=== PATIENT | female | born 1960 | race Hispanic/Latino ===

== ENCOUNTER 2016-11-07 06:12 | Inpatient (IN) | payer SELFPAY ==
[2016-11-07] MEDS ORDERED: NACL 0.9% 1000 ML 1,000 ML IV ONE ×2 (06:22→13:22)
[2016-11-07 07:41] LABS: INR 0.94 (0.87-1.13); Partial Thromboplastin Time < 20.0 Sec. (24.2-36.6)
[2016-11-07 07:50] LABS: Alanine Aminotransferase 68 units/L (7-56); Albumin 4.3 g/dL (3.9-5); Albumin/Globulin Ratio 1.5 %; Alkaline Phosphatase 104 units/L (35-129); Anion Gap 22 mmol/L; Blood Urea Nitrogen 39 mg/dL (7-17); Calcium 9.1 mg/dL (8.4-10.2); Carbon Dioxide 22 mmol/L (22-30); Chloride 101.3 mmol/L (98-107); Glucose 97 mg/dL (65-100); Lipase 25 units/L (13-60); Potassium 4.4 mmol/L (3.6-5.0); Sodium 141 mmol/L (137-145); Total Protein 7.1 g/dL (6.3-8.2)
[2016-11-07] MEDS ORDERED: NARCAN 2 MG/2 ML ONE (08:01)
[2016-11-07 08:10] LABS: Basophils % (Auto) 1.2 % (0.0-1.8); Eosinophils % (Auto) 0.6 % (0.0-4.3); Hematocrit 41.6 % (30.3-42.9); Hemoglobin 14.1 gm/dl (10.1-14.3); Mean Corpuscular HGB Conc 34 % (30-34); Mean Corpuscular Hemoglobin 36 pg (28-32); Mean Corpuscular Volume 105 fl (79-97); Platelet Count 217 K/mm3 (140-440); Red Blood Count 3.97 M/mm3 (3.65-5.03); Red Cell Distribution Width 13.3 % (13.2-15.2); White Blood Count 8.7 K/mm3 (4.5-11.0)
[2016-11-07] MEDS ORDERED: MORPHINE IV ONE (10:51)
--- NOTE | 2016-11-07 10:57 | Emergency Department Report ---
ED GI Bleed HPI - General Chief complaint: GI Bleed Stated complaint: VOMITING BLOOD/DIARREAH/BLOOD IN STOOL Time Seen by Provider: 11/07/16 10:43 Source: patient Mode of arrival: Ambulatory Limitations: No Limitations - History of Present Illness Initial comments: Patient is a 56 year White female who presents with epigastric pain that is a 6/ 10 it is an achy type of pain. Nothing makes the pain better or worse. Pt also has been vomiting blood and has had some dark stools. Patient has had 2 episodes of coffee ground emesis. Pt has had a history of a Duodenal ulcer that is s/p repair. Pt has been taking NSAIDS for her Migraines. Pt denies having any other pain. - Related Data Previous Rx's Medication Instructions Recorded Last Taken Type Lisinopril [Zestril TAB] 20 mg PO QDAY #30 tablet 10/09/13 Unknown Rx amLODIPine [Norvasc] 5 mg PO DAILY #30 tab 10/09/13 Unknown Rx Allergies Allergy/AdvReac Type Severity Reaction Status Date / Time metoclopramide HCl Allergy Unknown Verified 10/08/13 11:31 [From [facility]] prochlorperazine edisylate Allergy Unknown Verified 10/08/13 11:31 [From Compazine] prochlorperazine maleate Allergy Unknown Verified 10/08/13 11:31 [From Compazine] ED Review of Systems ROS: Stated complaint: VOMITING BLOOD/DIARREAH/BLOOD IN STOOL Other details as noted in HPI Comment: All other systems reviewed and negative Constitutional: malaise Eyes: denies: eye pain, eye discharge, vision change ENT: denies: ear pain, throat pain Respiratory: denies: cough, shortness of breath, wheezing Cardiovascular: denies: chest pain, palpitations Gastrointestinal: abdominal pain, nausea, vomiting, melena Genitourinary: denies: urgency, dysuria, discharge Musculoskeletal: denies: back pain, joint swelling, arthralgia Skin: denies: rash, lesions Neurological: denies: headache, weakness, paresthesias Psychiatric: denies: anxiety, depression Hematological/Lymphatic: denies: easy bleeding, easy bruising ED Past Medical Hx - Past Medical History Previous Medical History?: Yes Hx Hypertension: Yes Hx Headaches / Migraines: Yes Additional medical history: DUODENAL ULCER - Surgical History Past Surgical History?: Yes Additional Surgical History: x 3, Peptic ulcer surgery - Family History Family history: diabetes - Social History Smoking Status: Never Smoker Substance Use Type: Alcohol - Medications Home Medications: Home Medications Medication Instructions Recorded Confirmed Last Taken Type Lisinopril [Zestril TAB] 20 mg PO QDAY #30 tablet 10/09/13 11/07/16 Unknown Rx amLODIPine [Norvasc] 5 mg PO DAILY #30 tab 10/09/13 11/07/16 Unknown Rx ED Physical Exam - General Limitations: No Limitations General appearance: alert - Head Head exam: Present: atraumatic - Eye Eye exam: Present: normal appearance Pupils: Present: normal accommodation - ENT ENT exam: Present: normal exam - Neck Neck exam: Present: normal inspection - Respiratory Respiratory exam: Present: normal lung sounds bilaterally - Cardiovascular Cardiovascular Exam: Present: tachycardia (HR 120) - GI/Abdominal GI/Abdominal exam: Present: tenderness, normal bowel sounds, other (old surgical scar ). Absent: guarding, rebound - Rectal Rectal exam: Present: normal rectal tone, heme (+) stool, black stool - Extremities Exam Extremities exam: Present: full ROM - Back Exam Back exam: Present: normal inspection - Neurological Exam Neurological exam: Present: alert, oriented X3 - Psychiatric Psychiatric exam: Present: normal affect, normal mood - Skin Skin exam: Present: warm ED Course Vital Signs 11/07/16 11/07/16 11/07/16 06:15 06:40 06:51 Temperature 97.7 F Pulse Rate 120 H 105 H Respiratory 18 15 15 Rate Blood Pressure 163/121 177/124 Blood Pressure [Left] O2 Sat by Pulse 99 99 99 Oximetry 11/07/16 11/07/16 11/07/16 07:10 11:00 13:45 Temperature 98.0 F 99.5 F Pulse Rate 103 H 108 H 90 Respiratory 16 16 Rate Blood Pressure 170/125 Blood Pressure 177/119 175/103 [Left] O2 Sat by Pulse 99 100 Oximetry 11/07/16 11/07/16 13:46 14:00 Temperature Pulse Rate 83 Respiratory 18 16 Rate Blood Pressure Blood Pressure 154/82 [Left] O2 Sat by Pulse 100 100 Oximetry - Reevaluation(s) Reevaluation #1: 11/07/16 11:09 Patient rates pain as an 8 out of 10 rectal exam showed heme positive and melanic stool discussed with patient need for admission patient agrees with plan Reevaluation #2: 11/07/16 11:49 Patient came back from CT she is having hives and HEENT on her bilateral foot or extremities patient able to talk in full sentences nor throat swelling patient is in no acute distress we'll give patient IV Benadryl discussed with patient about plan patient agrees. Reevaluation #3: 11/07/16 13:54 CT scan shows nothing acute and abdomen. Discussed with patient about not taking NSAIDs for her abdominal pain. Talked to GI doctor Dr. Alicia about scoping the patient he will scope the patient Patient's pain is improved discussed with the hospitalist Dr. Pittman for admission. Patient's pain is improved. We'll admit and keep nothing by mouth. Patient agrees with plan. ED Medical Decision Making - Lab Data Result diagrams: 11/07/16 13:26 11/07/16 07:19 - EKG Data 11/07/16 11:11 EKG shows sinus tachycardia normal axis and no ST segment elevations no increase in her bowel QTC is 462 impression is sinus tachycardia previous EKG just shows normal sinus rhythm and possible old anterior infarct - Radiology Data Radiology results: pending - Medical Decision Making CDX: Peptic Ulcer DDX: Lower GI arterial venous malformation, Chronic NSAID use, Esophageal Varacies Patient will need CBC CMP type and screen rectal exam IV fluids EKG cardiac markers pain control CT scan due to patient's potentially life-threatening condition will admit patient. Critical care attestation.: If time is entered above; I have spent that time in minutes in the direct care of this critically ill patient, excluding procedure time. ED Disposition Clinical Impression: GI bleed, Abdominal pain, Tachycardia, Nausea & vomiting Disposition: -09 OP ADMIT IP TO THIS HOSP Is pt being admited?: Yes Does the pt Need Aspirin: No Condition: Stable Referrals: PRIMARY CARE, [Primary Care Provider] - 3-5 Days Forms: Accompanied Note
--- NOTE | 2016-11-07 11:16 | Admit Criteria Form ---
Admission Criteria Documentation: GASTROINTESTINAL BLEEDING Clinical Indications for Inpatient Care (Place 'X' for any and all applicable criteria): Ongoing inpatient care may be indicated for gastrointestinal bleeding with ANY ONE of the following (4)(20)(21)(22)(23)(24): [X ]I. Active bleeding (eg, fresh voluminous blood in emesis or nasogastric aspirate, or per rectum) [ ]II. Hemodynamic instability [ ]III. Anticoagulation therapy or coagulopathy ((eg, advanced liver disease, irreversible anticoagulation) [ ]IV. Ischemic colitis (22) [ ]V. Endoscopy showing arterial bleeding, adherent clot, nonbleeding visible vessel, varices, flat red spots, ulcer size greater than 2 cm, or portal hypertensive gastropathy [ ]. High-risk low platelet count [ ]VII. Anemia requiring inpatient care as indicated by ANY ONE of the following a)[ ] Cognitive impairment b)[ ] Syncope c)[ ] Heart failure d)[ ] Chest pain e)[ ] Dyspnea f)[ ] Other findings suggesting inadequate perfusion (eg, peripheral or myocardial ischemia, end organ dysfunction) [ ]VIII. High-risk low platelet count [ ]IX. Suspected variceal cause of bleeding as indicated by ANY ONE of the following(27)(28): a)[ ] Known varices b)[ ] Hepatomegaly or splenomegaly c)[ ] Ascites d)[ ] Jaundice or scleral icterus e)[ ] History of liver disease (eg, cirrhosis) f)[ ] Physical findings of portal hypertension (eg, caput medusa) g)[ ] Comorbid disorder indicating risk for portal vein thrombosis (eg , abdominal surgery, sepsis, shock, exchange transfusion, prior umbilical vein catheterization) Extended stay may be needed until ALL of the following are present(20)(38)(47): [ ]a) Hemodynamic stability [ ]b) No evidence of active bleeding (eg, stable Hematocrit) [ ]c) Platelet count, prothrombin time, and partial thromboplastin time acceptable for next level of care [ ]d) Surgical or other acute intervention not needed [ ]e) Oral hydration and diet tolerated The original [facility] content created by [employer] has been revised. The portions of the content which have been revised are identified through the use of italic text or in bold, and [facility] has neither reviewed nor approved the modified material. All other unmodified content is copyright [facility]. Please see references footnoted in the original [facility] edition 2016 Admission Criteria Met: Yes
[2016-11-07] MEDS ORDERED: ZOFRAN IV ONE (11:19)
[2016-11-07] MEDS ORDERED: BENADRYL IV ONE (11:48)
[2016-11-07] MEDS ORDERED: PROTONIX IV ONE (12:00)
--- NOTE | 2016-11-07 12:30 | Cat Scan Report ---
CT ABDOMEN AND PELVIS WITH CONTRAST INDICATION: GI bleed, epigastric abdominal pain. COMPARISON: None similar. FINDINGS: Abdomen and pelvis CT performed following intravenous administration of 100 cc of Omnipaque 300. LUNG BASES: Nonspecific distal esophageal wall prominence/thickening, not excluded for gastroesophageal reflux and/or hiatal hernia, amongst others. ABDOMEN: Diffuse fatty hepatic infiltration with slight pericholecystic sparing. Otherwise unremarkable liver, spleen, gallbladder, pancreas, adrenals, nonaneurysmal abdominal aorta with atherosclerotic calcifications, IVC and kidneys. Nonopacified GI tract evaluation limited, though grossly nonobstructive. Mid to distal small bowel somewhat fluid filled. Normal appendix. Tiny fat-containing umbilical hernia. PELVIS: Approximately 5 mm hypodense uterine focus indeterminate, though possibly fatty on axial image 305, series 2. Unremarkable urinary bladder and rectosigmoid. No free fluid or significant adenopathy. Mild, age-appropriate spinal degenerative spurring. CONCLUSION: Fatty liver and few other incidental findings, as above. Thank you for the opportunity to participate in this patient's care.
[2016-11-07] MEDS ORDERED: NORMODYNE IV ONE (13:24)
[2016-11-07 13:42] LABS: Basophils % (Auto) 0.7 % (0.0-1.8); Eosinophils % (Auto) 0.3 % (0.0-4.3); Hematocrit 39.8 % (30.3-42.9); Hemoglobin 13.4 gm/dl (10.1-14.3); Mean Corpuscular HGB Conc 34 % (30-34); Mean Corpuscular Hemoglobin 35 pg (28-32); Mean Corpuscular Volume 105 fl (79-97); Platelet Count 246 K/mm3 (140-440); Red Cell Distribution Width 13.4 % (13.2-15.2); White Blood Count 10.5 K/mm3 (4.5-11.0)
[2016-11-07] MEDS ORDERED: APRESOLINE IV PRN (14:19)
--- NOTE | 2016-11-07 14:29 | History and Physical Report ---
History of Present Illness Date of examination: 11/07/16 Chief complaint: Vomiting of blood and dark stools History of present illness: 56-year-old female with past medical history significant for PUD with perforation, H. pylori, migraines, hypertension presented to the emergency department complaining of 2 episodes of vomiting of blood, multiple dark stools that started yesterday. Yesterday afternoon she started to have epigastric pain , burning in quality, 9 out of 10 in intensity with no radiation, associated with nausea and vomiting, no diaphoresis or palpitation. Patient has migraines and has been taking ibuprofen, patient knew that ibuprofen make her PUD worse. Patient has perforated peptic ulcer diseases 10 years ago and was repaired. Patient was treated for H. pylori. REVIEW OF SYSTEMS: GENERAL: no weight change, no fatigue, no fever HEAD: no head ache EYES: no blurry vision, no acute visual loss EARS: no hearing loss, no discharge, no earache NOSE: no stuffiness, no sneezing, no discharge MOUTH, THROAT AND NECK: no bleeding gums, no sore throat, no swollen neck CARDIAC: no palpitations, no dyspnea on exertion, no orthopnea, no PND, no edema , no chest pain RESPIRATORY: no shortness of breath, no wheeze, no cough, no sputum, no hemoptysis, no asthma GI: no decreased appetite,+ nausea, + vomiting, no dysphagia, + diarrhea, no constipation, + abdominal pain URINARY: no change in frequency, no urgency, no polyuria, no hematuria, no incontinence MUSCULOSKELETAL: no muscle weakness, no pain, no joint stiffness NEUROLOGIC: no loss of sensation/numbness, no tingling, no tremors, no weakness/ paralysis HEMATOLOGIC: no anemia, no easy bruising SKIN: no rashes ENDOCRINE: no heat/cold intolerance, no polyuria, no polydipsia, no thyroid problems, no diabetes PSYCHIATRIC: no anxiety, no depression, no suicidal ideations Past History Past Medical History: hypertension, migraines, other (peptic ulcer disease) Past Surgical History: , Other (repair of perforated peptic ulcer) Social history: full code. denies: smoking, alcohol abuse, prescription drug abuse, IV drug use Family history: no significant family history Medications and Allergies Allergies Allergy/AdvReac Type Severity Reaction Status Date / Time metoclopramide HCl Allergy Unknown Verified 06/27/14 11:31 [From Reglan] prochlorperazine edisylate Allergy Unknown Verified 10/08/13 11:31 [From Compazine] prochlorperazine maleate Allergy Unknown Verified 10/08/13 11:31 [From Compazine] Home Medications Medication Instructions Recorded Confirmed Last Taken Type Lisinopril [Zestril TAB] 20 mg PO QDAY #30 tablet 10/09/13 11/07/16 Unknown Rx amLODIPine [Norvasc] 5 mg PO DAILY #30 tab 10/09/13 11/07/16 Unknown Rx Active Meds: Active Medications Amlodipine Besylate (Norvasc) 5 mg PO DAILY JACKIE Hydralazine HCl (Apresoline) 10 mg IV Q4H PRN PRN Reason: Hypertension Sodium Chloride (Nacl 0.9% 1000 Ml) 1,000 mls @ 999 mls/hr IV BOLUS ONE Stop: 11/07/16 14:22 Last Admin: 11/07/16 14:08 Dose: 999 mls/hr Lisinopril (Zestril) 20 mg PO QDAY JACKIE Morphine Sulfate (Morphine) 4 mg IV Q4H PRN PRN Reason: Pain Ondansetron HCl (Zofran) 4 mg IV Q8H PRN PRN Reason: N/V unrelieved by Reglan Pantoprazole Sodium (Protonix) 40 mg IV BID JACKIE Exam - Physical Exam Narrative exam: Not in cardiopulmonary distress. The patient appeared well nourished and normally developed. Vital signs as documented. Head exam is unremarkable. No scleral icterus . Neck is without jugular venous distension, thyromegaly, or carotid bruits. Lungs are clear to auscultation. Cardiac exam reveals regular rate and Rhythm. First and second heart sounds normal. No murmurs, rubs or gallops. Abdominal exam reveals mild epigastric tenderness, with no guarding or rigidity. Extremities are nonedematous and both femoral and pedal pulses are normal. TRANSPORTATION MAINTENANCE SPECIALIST: Alert and oriented 3. No focal weakness. - Constitutional Vitals: Temp Pulse Resp BP Pulse Ox 99.5 F 83 16 154/82 100 11/07/16 11:00 11/07/16 14:00 11/07/16 14:00 11/07/16 14:00 11/07/16 14:00 Results - Labs CBC & Chem 7: 11/07/16 13:26 11/07/16 07:19 Labs: Laboratory Last Values WBC 10.5 K/mm3 (4.5-11.0) 11/07/16 13:26 RBC 3.80 M/mm3 (3.65-5.03) 11/07/16 13:26 Hgb 13.4 gm/dl (10.1-14.3) 11/07/16 13:26 Hct 39.8 % (30.3-42.9) 11/07/16 13:26 MCV 105 fl (79-97) H 11/07/16 13:26 MCH 35 pg (28-32) H 11/07/16 13:26 MCHC 34 % (30-34) 11/07/16 13:26 RDW 13.4 % (13.2-15.2) 11/07/16 13:26 Plt Count 246 K/mm3 (140-440) 11/07/16 13:26 Lymph % (Auto) 21.0 % (13.4-35.0) 11/07/16 13:26 [place] % (Auto) 10.0 % (0.0-7.3) H 11/07/16 13:26 Eos % (Auto) 0.3 % (0.0-4.3) 11/07/16 13:26 Baso % (Auto) 0.7 % (0.0-1.8) 11/07/16 13:26 Lymph # 2.2 K/mm3 (1.2-5.4) 11/07/16 13:26 [place] # 1.1 K/mm3 (0.0-0.8) H 11/07/16 13:26 Eos # 0.0 K/mm3 (0.0-0.4) 11/07/16 13:26 Baso # 0.1 K/mm3 (0.0-0.1) 11/07/16 13:26 Seg Neutrophils % 68.0 % (40.0-70.0) 11/07/16 13:26 Seg Neutrophils # 7.1 K/mm3 (1.8-7.7) 11/07/16 13:26 PT 13.0 Sec. (12.2-14.9) 11/07/16 07:19 INR 0.94 (0.87-1.13) 11/07/16 07:19 APTT < 20.0 Sec. (24.2-36.6) L 11/07/16 07:19 Sodium 141 mmol/L (137-145) 11/07/16 07:19 Potassium 4.4 mmol/L (3.6-5.0) 11/07/16 07:19 Chloride 101.3 mmol/L (98-107) 11/07/16 07:19 Carbon Dioxide 22 mmol/L (22-30) 11/07/16 07:19 Anion Gap 22 mmol/L 11/07/16 07:19 BUN 39 mg/dL (7-17) H 11/07/16 07:19 Creatinine 0.6 mg/dL (0.7-1.2) L 11/07/16 07:19 Estimated GFR > 60 ml/min 11/07/16 07:19 BUN/Creatinine Ratio 65.00 % 11/07/16 07:19 Glucose 97 mg/dL (65-100) 11/07/16 07:19 Calcium 9.1 mg/dL (8.4-10.2) 11/07/16 07:19 Total Bilirubin 0.60 mg/dL (0.1-1.2) 11/07/16 07:19 AST 77 units/L (5-40) H 11/07/16 07:19 ALT 68 units/L (7-56) H 11/07/16 07:19 Alkaline Phosphatase 104 units/L (35-129) 11/07/16 07:19 Troponin T < 0.010 ng/mL (0.00-0.029) 11/07/16 11:55 Total Protein 7.1 g/dL (6.3-8.2) 11/07/16 07:19 Albumin 4.3 g/dL (3.9-5) 11/07/16 07:19 Albumin/Globulin Ratio 1.5 % 11/07/16 07:19 Lipase 25 units/L (13-60) 11/07/16 07:19 Blood Type B POSITIVE 11/07/16 07:00 Antibody Screen TNR 11/07/16 07:00 MERRILL Antibody Screen Negative 11/07/16 07:00 - Imaging and Cardiology CT scan - abdomen: report reviewed (significant for fatty liver) Assessment and Plan Assessment and plan: Upper GI bleed - Patient is on IV pantoprazole - GI consulted, nothing by mouth after midnight for EGD tomorrow - H&H is stable, will do H&H Q12 hours - Avoid NSAIDs Migraines - Pain control Uncontrolled hypertension - Resume home medications and PRN hydralzine DVT prophylaxis - SCDs - no chemical prophylaxis because of GI bleed Disposition - admit to medical floor. Advance Directives: Yes (Full code) VTE prophylaxis?: Mechanical Contraindication Mechanical VTE Prophylaxis: Contraindicated Reason for no VTE Prophylaxis: Bleeding Plan of care discussed with patient/family: Yes
[2016-11-07] MEDS ORDERED: MORPHINE ONE (15:10)
[2016-11-07] MEDS: MORPHINE IV PRN ×2 (15:17→21:46)
[2016-11-07] MEDS: NORVASC PO SCH (18:44)
[2016-11-07] MEDS: ZESTRIL PO SCH (18:46)
[2016-11-07] MEDS: ZOFRAN IV PRN (21:49)
[2016-11-07] MEDS ORDERED: PROTONIX IV SCH (22:00)
--- NOTE | 2016-11-07 22:18 | Gastroenterology Consultation ---
History of Present Illness - Reason for Consult Consult date: 11/07/16 Hematemesis Requesting physician: TAHIR MIRELES - History of Present Illness The patient is a 56 yo female who came to the ER for hematemesis. She has a hx of PUD, with a surgery for this about 10 years ago by her report. She has been taking NSAIDs daily for the last few days for headaches, and acutely yesterday she had epigastric pain with hematemesis, multiple rounds (none today). Her stools as well for the last 24 hours have been black and tarry. She has epigastric pain that does not radiate, and is worsened with eating. She has had no fevers or chills, and has not lost any weight recently. She does take occasional prilosec and has not had a colonoscopy. There is no family hx of GI cancer. Past History Past Medical History: hypertension, migraines, other (peptic ulcer disease) Past Surgical History: , Other (repair of perforated peptic ulcer) Social history: full code. denies: smoking, alcohol abuse, prescription drug abuse, IV drug use Family history: no significant family history Medications and Allergies Allergies Allergy/AdvReac Type Severity Reaction Status Date / Time metoclopramide HCl Allergy Unknown Verified 10/08/13 11:31 [From Reglan] prochlorperazine edisylate Allergy Unknown Verified 10/08/13 11:31 [From Compazine] prochlorperazine maleate Allergy Unknown Verified 10/08/13 11:31 [From Compazine] Home Medications Medication Instructions Recorded Confirmed Last Taken Type Lisinopril [Zestril TAB] 20 mg PO QDAY #30 tablet 10/09/13 11/07/16 Unknown Rx amLODIPine [Norvasc] 5 mg PO DAILY #30 tab 10/09/13 11/07/16 Unknown Rx Active Meds: Active Medications Amlodipine Besylate (Norvasc) 5 mg PO DAILY [facility] Last Admin: 11/07/16 18:44 Dose: 5 mg Hydralazine HCl (Apresoline) 10 mg IV Q4H PRN PRN Reason: Hypertension Lisinopril (Zestril) 20 mg PO QDAY [facility] Last Admin: 11/07/16 18:46 Dose: 20 mg Morphine Sulfate (Morphine) 4 mg IV Q4H PRN PRN Reason: Pain Last Admin: 11/07/16 21:46 Dose: 4 mg Ondansetron HCl (Zofran) 4 mg IV Q8H PRN PRN Reason: N/V unrelieved by Reglan Last Admin: 11/07/16 21:49 Dose: 4 mg Pantoprazole Sodium (Protonix) 40 mg IV BID JACKIE Review of Systems - Review of Systems All systems: negative (as noted in the HPI.) Exam - Constitutional Vital Signs: Temp Pulse Resp BP Pulse Ox 97.9 F 83 20 154/84 98 11/07/16 20:03 11/07/16 20:03 11/07/16 21:46 11/07/16 20:03 11/07/16 20:03 General appearance: no acute distress - EENT Eyes: PERRL, EOM intact ENT: hearing intact, clear oral mucosa, poor dentition, no thrush - Neck Neck: supple, normal ROM - Respiratory Respiratory effort: normal Respiratory: bilateral: CTA - Cardiovascular Rhythm: regular Heart Sounds: Present: S1 & S2 Extremities: no ischemia, No edema - Gastrointestinal General gastrointestinal: Present: soft, tender (epigastric, and mild), non- distended - Integumentary Integumentary: Present: clear, warm, dry. Absent: pale - Neurologic Neurological: alert and oriented x3 - Labs CBC & Chem 7: 11/07/16 13:26 11/07/16 07:19 Assessment and Plan - Patient Problems (1) Hematemesis Current Visit: Yes Status: Acute Qualifiers: Nausea presence: N Plan to address problem: - Likely recurrent ulcer due to NSAID use. - Continue current protonix therapy. - EGD to evaluate. - Serial hct and transfuse as needed.
[2016-11-08 02:01] LABS: Basophils % (Auto) 0.3 % (0.0-1.8); Eosinophils % (Auto) 1.6 % (0.0-4.3); Hematocrit 36.7 % (30.3-42.9); Hemoglobin 12.1 gm/dl (10.1-14.3); Mean Corpuscular HGB Conc 33 % (30-34); Mean Corpuscular Hemoglobin 36 pg (28-32); Mean Corpuscular Volume 108 fl (79-97); Platelet Count 222 K/mm3 (140-440); Red Blood Count 3.41 M/mm3 (3.65-5.03); Red Cell Distribution Width 13.7 % (13.2-15.2); White Blood Count 8.9 K/mm3 (4.5-11.0)
[2016-11-08 02:47] LABS: Anion Gap 21 mmol/L; BUN/Creatinine Ratio 27.14; Blood Urea Nitrogen 19 mg/dL (7-17); Calcium 8.6 mg/dL (8.4-10.2); Carbon Dioxide 21 mmol/L (22-30); Chloride 102.1 mmol/L (98-107); Glucose 95 mg/dL (65-100); Potassium 4.1 mmol/L (3.6-5.0); Sodium 140 mmol/L (137-145)
[2016-11-08] MEDS: MORPHINE IV PRN (04:40)
[2016-11-08] MEDS ORDERED: MORPHINE IV ONE ×2 (09:00→12:00)
[2016-11-08] MEDS: ZOFRAN IV PRN (09:02)
[2016-11-08] MEDS ORDERED: NACL 0.9% 1000 ML 1,000 ML ONE (09:14)
[2016-11-08] MEDS ORDERED: WATER FOR IRRIG STERILE IR ONE (09:24)
--- NOTE | 2016-11-08 09:31 | Anesthesia Day of Surgery ---
Anesthesia Day of Surgery - Day of Surgery Patient Examined: Yes Patient H&P Reviewed: Yes Patient is NPO: Yes
--- NOTE | 2016-11-08 09:32 | Anesthesia Consultation ---
Anesthesia Consult and Med Hx Date of service: 11/08/16 - Airway Anesthetic Teeth Evaluation: Good ROM Head & Neck: Adequate Mental/Hyoid Distance: Adequate Mallampati Class: Class III Intubation Access Assessment: Possibly Difficult - Pulmonary Exam CTA: Yes - Cardiac Exam Cardiac Exam: RRR - Pre-Operative Health Status ASA Pre-Surgery Classification: ASA2 Proposed Anesthetic Plan: MAC - Pulmonary Hx Smoking: No Hx Asthma: No COPD: No Hx Pneumonia: No - Cardiovascular System Hx Hypertension: Yes Hx Heart Attack/AMI: No - Central Nervous System Hx Seizures: No CVA: No - Gastrointestinal Hx Ulcer: Yes (duodenal ulcer sp sx) Hx Gastroesophageal Reflux Disease: No - Endocrine Hx Renal Disease: Yes (renal stones) Hx Liver Disease: No Hx Non-Insulin Dependent Diabetes: No - Other Systems Hx Alcohol Use: Yes (socially) Hx Obesity: No - Additional Comments Anesthesia Medical History Comments: NAC
[2016-11-08] MEDS ORDERED: DIPRIVAN 10 MG/ML IV ONE ×2 (09:36→09:48)
--- NOTE | 2016-11-08 09:59 | Post Operative Note ---
Pre-op diagnosis: Melena Post-op diagnosis: other (Duodenal ulcer, HH, gastritis) Findings: 1. 4mm white-based duodenal bulb ulcer 2. Mild erythema in the stomach; bx for H pylori 3. Medium hiatal hernia 4. LA Grade B erosive esophagitis Procedure: EGD with cold biopsy Anesthesia: MAC Surgeon: MYLES GARCIA Estimated blood loss: minimal Pathology: list (1. Gastric antrum) Specimen disposition: to lab Condition: stable Disposition: floor (Recs: 1. OK to advance diet. 2. OK to d/c home on oral protonix as ulcer would be considered low risk to bleed. 3. D/C all NSAIDs. 4. Will sign off; please call with questions.)
[2016-11-08] MEDS ORDERED: NACL 0.9% 1000 ML 1,000 ML IV SCH (10:00)
[2016-11-08] MEDS ORDERED: MORPHINE IV PRN (10:00)
[2016-11-08] MEDS ORDERED: THERAGRAN-M Tab PO SCH (10:00)
[2016-11-08] MEDS ORDERED: PROTONIX PO SCH (10:00)
--- NOTE | 2016-11-08 10:22 | Post Anesthesia Evaluation ---
- Post Anesthesia Evaluation Patient Participated: Yes Airway Patent: Yes Stable Respiratory Function: Yes Nausea/Vomiting: No Temp > 96.8F: Yes Pain Manageable: Yes Adequeate Hydration: Yes Anesthesia Complications: No Block Receding Appropriately: Not Applicable Patient on Ventilator: No
[2016-11-08 10:34] VITALS: BP 141/87
--- NOTE | 2016-11-08 11:09 | Discharge Summary ---
Providers - Providers Date of Admission: 11/07/16 13:49 Date of discharge: 11/08/16 Attending physician: DIMITRI DENT 11/07/16 14:18 Consult to Physician [CONS] Routine Consulting Provider: MYLES GARCIA Reason For Exam: GI bleed Place consult to:: [facility] Notified:: office Phone number called:: [phone] Was contact made?: Yes Time called:: 16:02 Primary care physician: ENVIRONMENTAL SCIENCE TECHNICIAN Hospitalization Reason for admission: hematemesis and melena Condition: Stable Pertinent studies: CT abdomen and pelvis ; fatty liver and some incidental findings EGD; for MMR side in the duodenal bulb wide base no stigmata of bleeding Mild erythema in the stomach consistent with chronic gastritis status post biopsy Medium-sized hiatal hernia LA grade B erosive esophagitis Advised protonix and to avoid nonsteroidal anti-inflammatory drugs Hospital course: 56-year-old female patient with significant past medical history of peptic peptic ulcer disease with perforation and migraine headaches was admitted through emergency room with the hematemesis and melena Patient was initially evaluated admitted to the hospital seen by GI, had EGD in the report of which is as mentioned above Patient was strongly advised to quit NSAIDs and use Protonix Today she is comfortable in bed no new complaints and no new episodes of bleeding H&H is stable, [id number] evaluation and physical examination done by me prior to discharge is unremarkable as detailed below Cleared by GI for discharge and follow-up with them in the office for biopsy results Patient is hemodynamically and clinically stable at the time of discharge, Discharge diagnosis; GI bleeding resolved History of peptic ulcer disease with perforation Migraine headache Hypertension Chronic NSAIDs usage Disposition: DC- TO HOME OR SELFCARE Time spent for discharge: 31 min Core Measure Documentation - Palliative Care Palliative Care/ Comfort Measures: Not Applicable - Core Measures Any of the following diagnoses?: none Exam - Constitutional Vitals: Temp Pulse Resp BP Pulse Ox 97.9 F 83 14 141/87 96 11/08/16 10:00 11/08/16 10:30 11/08/16 10:30 11/08/16 10:30 11/08/16 10:30 General appearance: Present: no acute distress, well-nourished - EENT Eyes: Present: PERRL, EOM intact - Neck Neck: Present: supple, normal ROM - Respiratory Respiratory effort: normal Respiratory: negative: rales, rhonchi, wheezing - Cardiovascular Rhythm: regular Heart Sounds: Present: S1 & S2 - Extremities Extremities: no ischemia, pulses intact, pulses symmetrical - Abdominal General gastrointestinal: Present: soft, non-tender, non-distended, normal bowel sounds - Integumentary Integumentary: Present: clear, warm - Musculoskeletal Musculoskeletal: strength equal bilaterally - Psychiatric Psychiatric: appropriate mood/affect, cooperative - Neurologic Neurologic: CNII-XII intact, moves all extremities Plan Activity: no restrictions Diet: low salt, advance as tolerated Additional Instructions: Avoid NSAIDS,. If you should have any new episodes of GI bleeding contact M.D. or go to emergency room Follow up with: PRIMARY CAREMD [Primary Care Provider] - 3-5 Days MYLES GARCIA MD [Staff Physician] - 7 Days Forms: Accompanied Note Prescriptions: Pantoprazole [Protonix] 40 mg PO QDAY #30 tablet
[2016-11-08] MEDS: ZESTRIL PO SCH (12:14)
[2016-11-08] MEDS: NORVASC PO SCH (12:14)
--- NOTE | 2016-11-08 13:15 | Operative Report ---
PROCEDURE PERFORMED: Esophagogastroduodenoscopy with cold biopsy. PREOPERATIVE DIAGNOSES: Melena and history of ulcers. POSTOPERATIVE DIAGNOSES: Duodenal ulcer, gastritis, hiatal hernia, esophagitis. ENDOSCOPIST: Rashard Alicia MD INSTRUMENT: Twelixir video endoscope. MEDICATIONS: MAC anesthesia by anesthesia services. COMPLICATIONS: No apparent complications. ESTIMATED BLOOD LOSS: Minimal. SPECIMENS: Gastric antrum. IMPLANTS: None. PLANETARIUM TECHNICIAN: None. CONDITION AT COMPLETION: Stable. TECHNIQUE: The patient was informed of the risks and benefits of the procedure. She signed the informed consent to proceed. She was placed in left lateral decubitus position. The above sedative medications were given. Her vital signs remained stable throughout the procedure. The instrument was advanced from the mouth to the second portion of the duodenum under direct visualization. At that point, the bowel was insufflated and the endoscope was slowly withdrawn. FINDINGS: 1. A 4 mm ulcer in the duodenal bulb, white - based, with no stigmata of bleeding. 2. Mild erythema in the stomach consistent with chronic gastritis; a biopsy was taken to rule out H. pylori given her duodenal ulcer. 3. Medium-sized hiatal hernia. 4. LA grade B erosive esophagitis. RECOMMENDATIONS: 1. Okay to advance diet. 2. Okay to discharge home on oral Protonix as the ulcer would be considered low risk to rebleed. 3. Discontinue all nonsteroidal anti-inflammatory drugs. 4. We will sign off. Please call us with questions. JOB# [id number] MAGGY/NTS
== END 2016-11-08 13:00 | disposition home or self-care (01) | DRG 379 ==
LOC: ED 06:12 → OBSVTOIN 13:49 → 4A 13:49
PROVIDERS: ADMIT Internal Medicine; ATTEND Internal Medicine
PROC: 0DB68ZX Excision of Stomach, Via Natural or Artificial Opening Endoscopic, Diagnostic (ICD-10-PCS; principal; 2016-11-08)
DX: K92.2 Gastrointestinal hemorrhage, unspecified (principal); I10 Essential (primary) hypertension; G43.909 Migraine, unspecified, not intractable, without status migrainosus; Z83.3 Family history of diabetes mellitus; Z88.8 Allergy status to other drugs, medicaments and biological substances; Z72.89 Other problems related to lifestyle; Z87.11 Personal history of peptic ulcer disease; Z87.442 Personal history of urinary calculi; K29.70 Gastritis, unspecified, without bleeding; K26.9 Duodenal ulcer, unspecified as acute or chronic, without hemorrhage or perforation; K44.9 Diaphragmatic hernia without obstruction or gangrene; K20.9 Esophagitis, unspecified; Z79.1 Long term (current) use of non-steroidal anti-inflammatories (NSAID)
CPT/HCPCS: 36415; 74177; 80048; 80053; 83690; 84484; 85025; 85610; 85730; 86850; 86900; 86901; 88305; 88342; 93005; 93010; C9113; J1200; J2270; J2310; J2405; J2704; J3246; J7030; Q9967